=== PATIENT | female | born 1970 | race Caucasian/White ===

== ENCOUNTER → 2017-02-02 | Outpatient (CLI) | payer OTHER | END | disposition home or self-care (01) | LOC: EMPHLTH 13:57 | PROVIDERS: ATTEND Internal Medicine | DX: R76.11 Nonspecific reaction to tuberculin skin test without active tuberculosis (principal) ==

== ENCOUNTER → 2020-01-08 | Outpatient (CLI) | payer OTHER | END | disposition home or self-care (01) | LOC: LABPV 16:42 | PROVIDERS: ATTEND Emergency Medicine | DX: Z20.828 Contact with and (suspected) exposure to other viral communicable diseases (principal) | CPT/HCPCS: 87426; U0003 ==

== ENCOUNTER → 2020-01-15 | Outpatient (CLI) | payer OTHER | END | disposition home or self-care (01) | LOC: LABPV 15:16 | DX: U07.1 COVID-19 (principal) | CPT/HCPCS: U0003-CS ==

== ENCOUNTER → 2021-02-06 | Outpatient (CLI) | payer OTHER | END | disposition home or self-care (01) | LOC: RADMN 10:36 | PROVIDERS: ATTEND Internal Medicine | DX: J98.4 Other disorders of lung (principal); R76.11 Nonspecific reaction to tuberculin skin test without active tuberculosis | CPT/HCPCS: 71045 ==

== ENCOUNTER → 2022-07-28 | Outpatient (CLI) | payer OTHER | END | disposition home or self-care (01) | LOC: RADMN 14:04 | PROVIDERS: ATTEND Legal Medicine | DX: M50.33 Other cervical disc degeneration, cervicothoracic region (principal); M50.322 Other cervical disc degeneration at C5-C6 level; M50.323 Other cervical disc degeneration at C6-C7 level; M43.12 Spondylolisthesis, cervical region; M47.812 Spondylosis without myelopathy or radiculopathy, cervical region; M06.9 Rheumatoid arthritis, unspecified | CPT/HCPCS: 72040 ==

== ENCOUNTER → 2024-03-17 | Emergency (ER) | payer OTHER ==
[~2024-03-17] VITALS: Ht 152.4 cm; Wt 50.0 kg
[~2024-03-17] MED LIST: HYDR200T38 PO; LISI-893 PO; METH2.5T47 PO
[2024-03-17 15:54] VITALS: TEMP 98.7
[2024-03-17] MEDS: ACETAMINOPHEN 500 MG TABLET PO ONE (17:22)
[2024-03-17] MEDS: IBUPROFEN 600 MG TABLET PO ONE (17:22)
[2024-03-17] MEDS: BACITRACIN 0.9 GM PACKET OINTMENT TP ONE (17:22)
[2024-03-17] MEDS: LIDOCAINE 1% 10 ML VIAL SQ ONE (17:23)
[2024-03-17 17:50] VITALS: BP 129/82; PULSE 77; RESP 16; O2SAT 98
== END | disposition still patient (30) ==
LOC: EMS 15:06
DX: S61.211A Laceration without foreign body of left index finger without damage to nail, initial encounter (principal); I10 Essential (primary) hypertension; Z88.2 Allergy status to sulfonamides; W26.8XXA Contact with other sharp object(s), not elsewhere classified, initial encounter; Y93.89 Activity, other specified; Y92.89 Other specified places as the place of occurrence of the external cause; Y99.0 Civilian activity done for income or pay
CPT/HCPCS: 99283; 73130; 12001; J3490

== ENCOUNTER → 2025-02-06 | Outpatient (CLI) | payer OTHER | END | disposition home or self-care (01) | LOC: RADMN 14:36 | PROVIDERS: ATTEND Internal Medicine | DX: J98.4 Other disorders of lung (principal); M47.814 Spondylosis without myelopathy or radiculopathy, thoracic region; Z86.11 Personal history of tuberculosis | CPT/HCPCS: 71045 ==